=== PATIENT | male | born 1995 | race Asian ===

== ENCOUNTER 2019-12-23 00:06 | Emergency (ER) | payer SELFPAY ==
--- NOTE | ~2019-12-23 | XR_ITS ---
XR chest 2V DATE: 12/23/2019 01:18 INDICATION: Cough and fever TECHNIQUE: PA and lateral views COMPARISON: None FINDINGS: No pulmonary infiltrate or consolidation, pleural effusion or pulmonary vascular congestion or pneumothorax. Normal heart size. IMPRESSION: No active cardiopulmonary disease Reviewed, dictated and finalized at location A. D [employer]
[2019-12-23 00:10] VITALS: BP 141/87; PULSE 71; RESP 20; TEMP 36.8; O2SAT 99
--- NOTE | 2019-12-23 00:22 | ED.FEVER ---
HPI - Fever General Chief Complaint: Abdominal Pain Stated Complaint: Fever, Stomach pain Time Seen by Provider: 12/23/19 00:10 Source: patient, health care law specialist and other (Friend) Mode of arrival: ambulatory Limitations: no limitations History of Present Illness HPI Narrative: Previously well 24-year-old man comes in today complaining of headache, joint pain and body aches all over. He has also had fever, cough, loose stools and epigastric pain over the last day or two. His body aches and fever started 4 days ago. He denies hematuria, dysuria, vomiting, rash, shortness of breath. He denies any sick contacts and recent travel. He has had no contacts with traveler's from [place]. He's been here visiting for the last 9 months from [place]. elicited complaint: fever and malaise Onset (ago): day(s) (3-4) Exacerbating factors: nothing Relieving factors: nothing Associated symptoms: chills, myalgias, headache, cough, abdominal pain and diarrhea Related Data Allergies Allergy/AdvReac Type Severity Reaction Status Date / Time No Known Allergies Allergy Verified 12/23/19 01:50 Review of Systems Constitutional: Constitutional: Reports chills, Reports fatigue and Reports fever(s) Eyes: Eyes: Denies change in vision and Denies photophobia ENT: Denies dysphagia, Denies nasal congestion and Denies sore throat Cardiovascular: Cardiovascular: Denies chest pain and Denies radiating jaw, neck or arm pain Respiratory: Respiratory: Denies chest congestion, Reports cough and Denies dyspnea Gastrointestinal: Gastrointestinal: Reports as per HPI, Reports abdominal pain ( Epigastric), Reports diarrhea ( loose stools today), Denies nausea and Denies vomiting Genitourinary: Genitourinary: Denies hematuria, Denies oliguria and Denies dysuria Musculoskeletal: Musculoskeletal: Denies back pain, Denies arthralgias, Denies joint swelling and Denies muscle cramps Integumentary/Breasts: Skin/Breast: Denies pruritus, Denies erythema and Denies rash Neurologic: Denies vertigo, Denies dizziness and Denies syncope Psychiatric: Psychiatric: Denies anxiety and Denies depression Hematologic/Lymphatic: Hematologic/Lymphatic: Denies easy bleeding and Denies easy bruising Allergic/Immunologic: Allergic/Immunologic: Denies lip swelling and Denies wheezing PMFSH Social History Social History Smoking status: Current every day smoker Tobacco type: e-cigarettes Alcohol intake: current Substance use: never Living arrangements: with friend(s) Exam Const: General: healthy appearing, no acute distress and alert Orientation/consciousness: patient oriented x3 HENMT: Ears: external ears normal, TM's normal bilaterally and EAC's normal Mouth: Yes Normal oral and palatal mucosa present and Yes moist mucous membranes Other: pharyngeal erythema without edema, masses or exudate. Eyes: Conjunctivae: conjunctivae normal Pupils: Equal, round and reactive pupils present EOM: EOMs intact bilaterally Cardio: Rate: regular rate Rhythm: regular rhythm Heart sounds: no murmurs GI: Inspection: non-distended GI Palp: Yes Soft to palpation, No Tenderness to palpation present (GI), No Guarding due to palpation present (GI) and No Rigid due to palpation Auscultation: normal bowel sounds Skin: General skin exam: normal color, no jaundice and no pallor Rashes: no rashes Neuro: General: No patient oriented x3, No moves all extremities and No no meningeal signs Extrem: General: normal to inspection and no clubbing, cyanosis or edema Psych: Appearance: grossly normal and well kempt Mental Status: mental status grossly normal Affect: normal affect Attitude: cooperative Thought content: Yes Normal thought content present Course Vital Signs Vital signs: Vital Signs Temperature 36.8 C 12/23/19 00:10 Pulse Rate 71 12/23/19 00:10 Respiratory Rate 20 12/23/19 00:10 Blood Pressure 141/87 H
[2019-12-23 00:52] LABS: Influenza Control Valid (Valid)
[2019-12-23 00:52] LABS: Add Urine Microscopic? NO; Appearance Urine Clear (Clear); Bilirubin Urine Negative (Negative); Blood Urine Negative (Negative); Color Urine Yellow (Yellow); Glucose Urine UA Negative (Negative); Ketones Urine Negative (Negative); Leukocyte Esterase Ur Negative LEU/UL (Negative); Nitrate Urine Negative (Negative); Protein Urine Negative (Negative); Urobilinogen Urine 0.2 mg/dL (0.2-1.0)
[2019-12-23 01:15] LABS: Basophils Absolute Auto 0.02 K/mm3 (0.00-0.10); Basophils Percent Auto 0.4 % (0.0-1.0); Eosinophils Absolute Auto 0.09 K/mm3 (0.02-0.50); Eosinophils Percent Auto 1.9 % (1.0-6.0); Hemoglobin 15.2 g/dL (14.0-18.0); Immature Granulocyte Absolute 0.02 K/mm3 (0.00-0.00); Immature Granulocyte Percent A 0.4 % (0.0-0.0); Lymphocytes Percent Auto 29.4 % (18.0-42.0); Mean Corpuscular HGB Conc 33.8 g/dL (32.0-36.0); Mean Corpuscular Hemoglobin 28.4 pg (27.0-31.0); Mean Corpuscular Volume 84.1 fL (78.0-102.0); Mean Platelet Volume 11.2 fl (8.7-11.0); Monocytes Absolute Auto 0.24 K/mm3 (0.10-0.90); Neutrophils Percent Auto 62.9 % (50.0-70.0); Platelet Count Result 213 K/mm3 (150-420); Red Blood Count 5.35 M/mm3 (4.70-6.10); White Blood Count 4.8 K/mm3 (4.8-10.8)
[2019-12-23 01:25] LABS: Alanine Aminotransferase 30 U/L (16-63); Albumin Level 4.5 g/dL (3.4-5.0); Alkaline Phosphatase 62 U/L (46-116); Anion Gap 14.9 mmol/L (7-16); Aspartate Amino Transferase 24 U/L (15-37); Bilirubin,Total 0.4 mg/dL (0.00-1.00); Blood Urea Nitrogen 6 mg/dL (7-18); Calcium 8.7 mg/dL (8.5-10.1); Carbon Dioxide 28 mmol/L (21-32); Chloride 103 mmol/L (98-108); Estimated CRCL calculation 86 ml/min; Estimated Glomerular Filt Rate > 60; Glucose 94 mg/dL (70-99); Osmolality Calculated 291 mOsm/kg (285-295); Potassium 3.9 mmol/L (3.5-5.1); Sodium 142 mmol/L (136-145); Total Protein 8.4 g/dL (6.4-8.2)
[2019-12-23 01:26] LABS: CRP < 0.2 mg/dL (0.0-0.9)
[2019-12-23 02:02] VITALS: BP 124/78; PULSE 78; RESP 20; TEMP 36.9; O2SAT 99
== END 2019-12-23 02:06 | disposition home or self-care (01) ==
PROVIDERS: Emergency Provider Emergency Medicine
DX: B34.9 Viral infection, unspecified (principal); M25.50 Pain in unspecified joint
CPT/HCPCS: 36415; 71046; 80053; 81003; 83605; 85025; 86140; 87040; 87081; 87804; 87880; 99283

== ENCOUNTER 2019-12-28 14:24 | Outpatient (CLI) | payer SELFPAY ==
[2019-12-28 15:25] LABS: Rheumatoid Factor Screen Negative (Negative)
== END 2019-12-28 14:25 | disposition home or self-care (01) ==
LOC: CHSLAB 14:28
PROVIDERS: PCP Nurse Practitioner Family; Visit Provider Nurse Practitioner Family
DX: M25.50 Pain in unspecified joint (principal)
CPT/HCPCS: 36415; 86038; 86430

== ENCOUNTER 2020-06-12 16:14 | Outpatient (CLI) | payer SELFPAY ==
--- NOTE | ~2020-06-12 | XR_ITS ---
XR hand RT min 3V DATE: 06/12/2020 16:40 INDICATION: Injury. Pain between third and fourth metacarpal phalangeal area TECHNIQUE: 3 views COMPARISON: None FINDINGS: There is a virtually nondisplaced minimally comminuted fracture at the junction of the base and shaft of the fifth metacarpal bone, without significant angulation. No other fracture or dislocation. IMPRESSION: Virtually nondisplaced fracture of the junction of the base and shaft of the fifth metaca rpal bone Reviewed, dictated and finalized at location B. IMPRESSION: Virtually nondisplaced fracture of the junction of the base and sha ft of the fifth metacarpal bone
== END 2020-06-12 16:15 | disposition home or self-care (01) ==
LOC: CHSIMG 16:16
PROVIDERS: PCP Family Medicine; Visit Provider Family Medicine
DX: M79.641 Pain in right hand (principal)
CPT/HCPCS: 73130

== ENCOUNTER 2020-06-15 22:48 | Emergency (ER) | payer SELFPAY ==
[2020-06-15 23:07] VITALS: BP 138/86; PULSE 61; RESP 18; TEMP 36.9; O2SAT 100
--- NOTE | 2020-06-15 23:10 | PC.NURSE ---
Ice pack applied to right hand, patient tolerated well.
--- NOTE | 2020-06-15 23:23 | ED.UPPEXIN ---
HPI - Extremity Injury (Upper) General Chief Complaint: Extremity Injury, Upper Stated Complaint: hand pain/swollen Source: patient and family Mode of arrival: ambulatory Limitations: no limitations History of Present Illness HPI narrative: This is a 24-year-old male presents with some right hand pain and swelling, he injured approximately 4 days ago and had an x-ray performed by his primary care physician on an outpatient basis which showed a fracture of the right 5th metacarpal proximal nondisplaced but comminuted. His primary care physician did not see him but called and told him to put an Mehrdad wrap on his right hand. This occurred approximately 4 days ago swelling has some gotten worse, currently he has a good strong right radial pulse is there is some mild tingling due to swelling. Has decreased range of motion secondary to swelling and pain. complaint: injury to: right and hand Other injuries: none Handedness: right Place: work Severity: moderate Severity scale (1-10): 6 Relieving factors: cold therapy and immobilization Exacerbating factors: movement of extremity Context: direct blow Associated symptoms: denies other symptoms Related Data Home Medications Medication Instructions Recorded Confirmed acetaminophen 500 mg tablet 500 mg PO Q6H PRN 12/28/19 06/15/20 multivitamin 1 tablet PO DAILY 12/28/19 06/15/20 Allergies Allergy/AdvReac Type Severity Reaction Status Date / Time No Known Allergies Allergy Verified 12/23/19 01:50 Review of Systems Review of Systems: All systems reviewed & are unremarkable except as noted in HPI and below PMFSH Past Medical History Medical History Typhoid fever Social History Social History Smoking status: Current every day smoker Tobacco type: e-cigarettes/vaping Alcohol intake: current Substance use: never Exam Const: General: no acute distress Orientation/consciousness: patient oriented x3 HENMT: Head: normal to inspection Eyes: Conjunctivae: conjunctivae normal EOM: EOMs intact bilaterally Neck: Neck: normal visual inspection Lymphatic: no lymphadenopathy noted Chest: Chest palpation & inspection: normal inspection of the chest Resp: Effort & Inspection: normal respiratory effort Auscultation: clear to auscultation bilaterally Cardio: Rate: regular rate Rhythm: regular rhythm GI: GI Palp: Yes Soft to palpation Back/Spine/Pelvis: Back: no CVA tenderness Skin: General skin exam: normal color Rashes: no rashes Extrem: Other: Swollen and tender right hand on the ulnar aspect of the 5th proximal metacarpal Psych: Appearance: grossly normal Mental Status: mental status grossly normal Course Course Emergency Course: the hand was splinted, pain medicine was administered and patient's family was told to follow-up with orthopedic doctor for further evaluation. Vital Signs Vital signs: Vital Signs Temperature 36.9 C 06/15/20 23:07 Pulse Rate 61 06/15/20 23:07 Respiratory Rate 18 06/15/20 23:07 Blood Pressure 138/86 06/15/20 23:07 Pulse Oximetry 100 06/15/20 23:07 Temperature 36.9 C 06/15/20 23:07 Pulse Rate 61 06/15/20 23:07 Respiratory Rate 18 06/15/20 23:07 Blood Pressure 138/86 06/15/20 23:07 Pulse Oximetry 100 06/15/20 23:07 Critical Care Time Critical Care Time Critical Care Time: No Discharge Plan Discharge Clinical Impression: Fracture of hand Qualifiers: Encounter type: initial encounter Fracture type: closed Laterality: right Qualified Code(s): S62.91XA - Unspecified fracture of right wrist and hand, initial encounter for closed fracture Patient Disposition: Home, Self-Care Condition: Stable Instructions: Antibiotic Form, Splint Care (ED), Boxer Fracture (ED) Prescriptions: New oxycodone-acetaminophen [Percocet] 5-325 mg tablet 1 tablet PO Q6H PRN (Robyn
[2020-06-15] MEDS: MORPHINE SULFATE 4 MG/ML INJ IM (23:34)
[2020-06-15 23:37] VITALS: BP 130/78; PULSE 72; RESP 20; TEMP 36.6; O2SAT 100
== END 2020-06-15 23:55 | disposition home or self-care (01) ==
PROVIDERS: Emergency Provider Emergency Medicine; PCP Family Medicine
DX: S62.91XA Unspecified fracture of right hand, initial encounter for closed fracture (principal)
CPT/HCPCS: 29125; 96372; 99283; 99284; A4565; J2270

== ENCOUNTER 2020-07-14 11:04 | Outpatient (RCR) | payer SELFPAY ==
--- NOTE | 2020-07-14 12:23 | OTOPEVAL ---
Thank you for referring Jamaal Day to [facility] [place] The patient is scheduled to be seen for therapy? ____x/week for ___ weeks. Please review, sign, date and return this plan of care HAYLEY. I agree with and certify that the following plan of care is medically necessary. Referring Physician Date Admitting Provider: Attending Provider: PHYSICIAN NOT ON STAFF Referring Provider: *OT Outpatient Evaluation Start: 07/14/20 11:09 Freq: Status: Active Protocol: Document 07/14/20 11:09 [facility] [place] (Rec: 07/14/20 12:23 [facility] [place] [id number]) Therapy Assessment Status Assessment Status Assessment Status Evaluation Outpatient Past Medical History Past Medical History No Past Medical/Surgical History Patient/Family Denies Significant Past Medical/ Surgical History Evaluation Information Problem Diagnosis Decreased ROM of R hand Onset 06/12/20 Cause R 5th metacarpal fracture Subjective Information Patient reports that he broke Query Text:As Reported By Patient/ his R hand about ~30 days ago Family by punching something. Patient reports that he speaks minimal Armenian. Patient arrives in a hand orthosis. Patient reports that he does not work and lives with his brother. Patient states that he has only been moving his R thumb, index and middle fingers. History and PLOF is difficult to obtain secondary to communication barrier. Diagnostic Tests X-Rays For This Problem Yes Prior Level of Function Activity Level (Last 3 Months) Hand Dominance Right Activity of Daily Living Ability Independent Indoor/Home Mobility Independent Community Mobility Independent Stairs Ability Independent Functional Cognition (Planning, Shopping Independent , Taking Medications) Cooking Yes Cleaning Yes Laundry Yes Shopping Yes Driving No Home Setting [employer] Responsibilities Comment Patient reports that he lives with his brother. He reports that he does not work and does not drive. Quick DASH score: 31.8% Mobility Assistive Devices (Used Last 3 None Months) Pain Assessment Timing of Pain Assessm
--- NOTE | 2020-08-21 08:54 | PCOTNOTE ---
OT spoke with patient's brother who reports that patient no longer lives in this area and moved to [place]. Patient is discharged from skilled OT services at this time. [place]
== END 2020-07-25 09:16 | disposition home or self-care (01) ==
LOC: CHSOT 11:04
DX: S62.346A Nondisplaced fracture of base of fifth metacarpal bone, right hand, initial encounter for closed fracture (principal)
CPT/HCPCS: 97110; 97140; 97165